=== PATIENT | female | born 1975 | race Caucasian/White ===

== ENCOUNTER 2017-05-12 12:07 | Emergency (ER) | payer SELFPAY ==
[~2017-05-12] VITALS: Ht 154.9 cm; Wt 76.0 kg
[2017-05-12 12:45] VITALS: BP 132/89
[2017-05-12] MEDS ORDERED: KETOROLAC TROMETHAMINE 60 MG/2 ML VIAL IM ONE (12:45)
[2017-05-12] MEDS ORDERED: METHOCARBAMOL 500 MG TABLET PO ONE (12:45)
== END 2017-05-12 13:39 | disposition home or self-care (01) ==
LOC: EMS 12:09
DX: S39.012A Strain of muscle, fascia and tendon of lower back, initial encounter (principal); X58.XXXA Exposure to other specified factors, initial encounter; Y93.89 Activity, other specified; Y92.89 Other specified places as the place of occurrence of the external cause; Y99.8 Other external cause status
CPT/HCPCS: 96372; 99283; J1885